=== PATIENT | male | born 1965 | race Caucasian/White ===

== ENCOUNTER 2023-07-03 06:23 | Day surgery (SDC) | payer BC, SELFPAY ==
--- NOTE | 2023-06-10 10:59 | CM ---
Patient is scheduled for an elective R THR on 07/03/23- he is a same day patient. Spoke with patient prior to surgery. Patient had a L THR at in 2020. Reintroduced role of Orthopedic Navigator. Patient reports that he lives with his , son and
daughter in a two story home. There is one step to enter and a flight of steps to the second floor. He currently functions independently. He has a rolling walker, cane, raised toilet seat and hip kit. He has had VN services through [facility]. PCP is
Willis Maldonado.
Discussed orthopedic program and post surgical plans. Reviewed that he will have VN services initially and will then start outpatient PT. Patient selects [facility] (face sheet faxed to [facility] to facilitate confirmation of benefits) for his home care
needs and will come to [facility] for outpatient PT.
Patient is in agreement with plan and states that his will be home with him.
Patient will complete online education.
Plan: Orthopedic Navigator will remain available to assist with the care of patient and will reassess discharge needs after surgery.
[2023-06-13 07:46] VITALS: BMI 29.1
[2023-06-13 08:43] LABS: Hematocrit 43.6 % (39.0-52.0); Hemoglobin 15.4 g/dL (13.0-18.0); Mean Corp Hgb Conc. 35.3 g/dL (33.0-37.0); Mean Corpuscular Hgb 31.4 pg (27.0-31.0); Mean Corpuscular Volume 88.8 fL (80.0-94.0); Mean Platelet Volume 10.2 fL (7.4-10.4); Platelet Count 211 10^3/uL (130-400); Red Blood Cell Count 4.91 10^6/uL (4.70-6.10); Red Cell Dist. Width 12.4 % (11.5-14.5); White Blood Cell Count 7.8 10^3/uL (4.8-10.8)
[2023-06-13 08:51] LABS: Glycohemoglobin (HgbA1c) 5.4 % (4.0-5.6)
[2023-06-13 09:06] LABS: ALT (SGPT) 33 U/L (0-50); AST (SGOT) 25 U/L (17-59); Albumin 4.2 g/dl (3.5-5.0); Alkaline Phosphatase 55 U/L (38-126); Blood Urea Nitrogen 17 mg/dl (9-20); Calcium 9.4 mg/dl (8.4-10.2); Carbon Dioxide 29 mmol/L (22-30); Chloride 100 mmol/L (98-107); Estimated Creatinine Clearance 81 ml/min; Glucose 88 mg/dl (70-99); Potassium 4.3 mmol/L (3.5-5.1); Sodium 138 mmol/L (135-145); Total Bilirubin 0.9 mg/dl (0.2-1.3); Total Protein 6.5 g/dl (6.3-8.2); eGFR > 60.00
--- NOTE | 2023-06-13 10:17 | HPS.HSE ---
Family Physician
-
Family Physician: Willis Maldonado
Chief Complaint
-
Advanced primary osteoarthritis of the right hip. Same-day surgery.
History of Present Illness
The patient is a 58-year-old male presenting today for advanced primary osteoarthritis of the right hip. The patient previously underwent a rather uncomplicated left total hip arthroplasty by Dr. Tung Chicas in June 2020. He returns
to [facility] today with complaints of significant right hip pain associated with his osteoarthritis. He states that his current right hip pain is greatly interfering with his activities of daily living and is overall affecting his quality
of life. He has tried and failed multiple conservative treatment measures in the past for his right hip pain. These conservative treatment measures include physical therapy, self-directed therapeutic exercises, activity modification, attempted
weight loss, medical management with Tylenol and NSAIDs, and the application of ice and/or heat. Recent x-ray findings of the right hip were consistent with advanced osteoarthritis. He was determined to be in need of a right total hip arthroplasty.
He denies any current complaints such as chest pain, shortness of breath, palpitations, nausea, vomiting, diarrhea, lightheadedness, dizziness, cough, sore throat or fever.
Medical History
Past Medical History
Past Medical History: Reports Other
Additional Past Medical History:
1. Osteoarthritis, status post left total hip arthroplasty, 06/2020, by Dr. Tung Chicas.
2. Sinus bradycardia, asymptomatic.
3. Borderline hypercholesterolemia.
4. Asthma, mild and intermittent.
5. Allergic rhinitis.
6. Diverticulosis.
7. Post-surgical urinary retention.
8. Insomnia.
9. Tinnitus.
10. COVID 19, 12/2021 and 04/2023, without residual side effects.
Past Surgical History: Reports Other
Additional Past Surgical History:
1. Left total hip arthroplasty, 06/2020, by Dr Tung Chicas.
2. Right long finger open reduction internal fixation.
3. Left little finger open reduction internal fixation.
4. Cholecystectomy.
5. Colonoscopy.
Social History
Tobacco: Non-smoker
Alcohol: Other (Social)
Personal:
Living: Other (He lives with his in a 2 story home. )
Family History
Family History: Not pertinent
Allergies / Home Medications
Allergy/Medication List:
Home medications:
1. Melatonin 2 mg p.o. at bedtime.
2. ProAir HFA inhaler 2 puffs inhaled every 4 hours as needed.
3. Co Q10 1 capsule p.o. daily.
4. Fish oil 2 capsules p.o. daily.
5. Super C 900 mg p.o. daily.
6. Multivitamin 1 tablet p.o. daily.
7. Ibuprofen 400-600 mg p.o. every 6 hours as needed.
8. Acetaminophen 1000 mg p.o. every 6 hours as needed.
9. Cetirizine HCl 10 mg p.o. daily.
�
ALLERGIES:� Cats and dogs. No known drug allergies.
Review of Systems
-
A 12 point ROS was completed and negative except as noted: Yes
Physical Exam
Vital Signs
Blood pressure 118/73. Heart rate 49. Respirations 18. Pulse ox 96% on room air.
Height 5 feet, 6.75 inches. Weight 83.5 kg. BMI 29.0.
Physical Exam
General: Well Developed, Well Nourished and No Apparent Distress
HEENT: NormoCephalic, Moist mucous membranes, Atraumatic and PERRLA
Respiratory: Clear
Cardiac: Bradycardia (asymptomatic)
GI: Soft, Non Tender and Non Distended
Musculoskeletal: Other (Left hip: 30 internal and 30 external without pain. Right hip: 0 internal with pain and 15 external. )
Skin: Warm and Dry
Neuro: AO x 3 and Nonfocal/grossly intact
Laboratory Results
-
06/13/23 07:34
06/13/23 07:34
Laboratory Results
Total Bilirubin 0.9 mg/dl (0.2-1.3) 06/13/23 07:34
AST 25 U/L (17-59) 06/13/23 07:34
ALT 33 U/L (0-50) 06/13/23 07:34
Alkaline Phosphatase 55 U/L (38-126) 06/13/23 07:34
Hemoglobin A1c 5.4.
MRSA nasal screen negative.
EKG 06/13/2023: Sinus bradycardia. The patient is asymptomatic and able to preform >4 METS.
Impression/Plan
-
CLEARANCES:
1. Primary medical: Dr. Willis Maldonado - cleared.
Primary medical phone number: [phone].
2. Dental waived.
IMPRESSION/PLAN:
1. Advanced primary osteoarthritis of the right hip in need of a right total hip arthroplasty with Dr. Tung Chicas on 07/03/2023. The benefits and risks of the procedure were explained to the patient. The patient understands these risks and
wishes to proceed.
2. DVT prophylaxis: Aspirin.
3. Pain management: The patient has stable comorbidities as referenced by his primary care doctor and is able to proceed as a Same-Day Surgical candidate on 07/03/2023. In preparation for his procedure, he has already been prescribed Oxycodone 5 mg,
1-2 tablets p.o. every 6 hours as needed for moderate to severe pain. He will also utilize Acetaminophen 1000 mg p.o. every 6 hours and Celebrex 200 mg p.o. daily for post-operative pain control. Decadron was offered but refused by patient.
4. Urinary retention post-surgery: The patient reports a history of urinary retention after prior procedures. He was prescribed Flomax to be started 3 nights prior to surgery. He will continue this prescription nightly post-surgery until finished.
Patient's phone number: [phone].
Patient's contact (Ila Hoover - Spouse): [phone].
[2023-06-13 16:50] VITALS: BMI 29.1
[2023-07-03] VITALS (19 sets, daily range): BP systolic 107–152; BP diastolic 54–88; PULSE 87; O2SAT 97; BMI 29.1
[2023-07-03] MEDS: CELEBREX 200 MG PO (07:21)
[2023-07-03] MEDS: TYLENOL 650 MG PO (07:21)
[2023-07-03] MEDS: BACTROBAN NASAL 1 GRAM NASAL (07:25)
[2023-07-03] MEDS: NORMOSOL-R 1000 IV ×2 (07:49→11:07)
[2023-07-03] MEDS: FLOMAX 0.400000000000000022 MG PO (11:06)
--- NOTE | 2023-07-03 11:08 | CM ---
Patient had planned R THR today. Met with patient at bedside to review discharge plans. Patient will be returning home today with services through [facility]. On Saturday, 07/08, patient will start outpatient PT at [facility]. Reviewed MD follow up
in two weeks and patient is aware of need to schedule appointment.
Patient has his rolling walker here with him.
PT and VN were kept updated as to progress and discharge plans.
[2023-07-03] MEDS: ANCEF 5 IV (12:40)
[2023-07-03] MEDS: TYLENOL 500 MG PO (12:45)
[2023-07-03] MEDS: ROXICODONE 5 MG PO (13:08)
== END 2023-07-03 15:15 | disposition home health service (06) ==
LOC: SDS 06:23
PROVIDERS: ATTENDING PHYSICIAN Orthopaedic Surgery; FAMILY PHYSICIAN Family Medicine; REFERRING PHYSICIAN Physician Assistant
DX: M16.11 Unilateral primary osteoarthritis, right hip (principal)
CPT/HCPCS: 27130; C1776; 36415; 73502; 80053; 83036; 85027; 87070; 93005; 97116; 97161

== ENCOUNTER 2023-07-10 12:59 | Outpatient (RCR) | payer BC, SELFPAY | END 2023-07-10 23:59 | disposition home or self-care (01) | LOC: RPT 12:59 | PROVIDERS: ATTENDING PHYSICIAN Orthopaedic Surgery; FAMILY PHYSICIAN Family Medicine | DX: Z47.1 Aftercare following joint replacement surgery (principal); Z96.641 Presence of right artificial hip joint; R26.89 Other abnormalities of gait and mobility; Z73.6 Limitation of activities due to disability | CPT/HCPCS: 97010; 97110; 97112; 97162 ==

== ENCOUNTER 2023-08-07 13:09 | Outpatient (RCR) | payer BC, SELFPAY | END 2023-08-07 14:05 | disposition home or self-care (01) | LOC: RPT 13:09 | PROVIDERS: ATTENDING PHYSICIAN Orthopaedic Surgery; FAMILY PHYSICIAN Family Medicine | DX: Z47.1 Aftercare following joint replacement surgery (principal); Z73.6 Limitation of activities due to disability; R26.89 Other abnormalities of gait and mobility; M25.551 Pain in right hip; Z96.641 Presence of right artificial hip joint | CPT/HCPCS: 97110; 97112 ==

== ENCOUNTER → 2024-12-21 15:21 | Outpatient (REF) | payer BC, SELFPAY | LOC: REG 15:21 | PROVIDERS: ATTENDING PHYSICIAN Family Medicine | DX: Z00.00 Encounter for general adult medical examination without abnormal findings (principal) | CPT/HCPCS: 36415 ==

== ENCOUNTER → 2024-12-22 13:12 | Outpatient (REF) | payer BC, SELFPAY ==
[2024-12-22 14:04] LABS: Hematocrit 45.2 % (39.0-52.0); Hemoglobin 16.1 g/dL (13.0-18.0); Mean Corp Hgb Conc. 35.6 g/dL (33.0-37.0); Mean Corpuscular Volume 87.1 fL (80.0-94.0); Nucleated Red Blood Cells % 0 % (-); Platelet Count 219 10^3/uL (130-400); Red Cell Dist. Width 12.0 % (11.5-14.5)
[2024-12-22 14:47] LABS: ALT (SGPT) 41 U/L (0-50); AST (SGOT) 28 U/L (17-59); Albumin 4.7 g/dl (3.5-5.0); Alkaline Phosphatase 49 U/L (38-126); Blood Urea Nitrogen 22 mg/dl (9-20); Calcium 9.5 mg/dl (8.4-10.2); Carbon Dioxide 27 mmol/L (22-30); Chloride 102 mmol/L (98-107); Glucose 94 mg/dl (70-99); HDL Cholesterol 41 mg/dl; LDL Cholesterol, Calculated 112 mg/dl; Potassium 4.8 mmol/L (3.5-5.1); Sodium 136 mmol/L (135-145); Total Protein 7.3 g/dl (6.3-8.2); Very Low Density Lipoprotein 32 mg/dl (0-30); eGFR > 60.00
[2024-12-22 15:25] LABS: PSA, Total - Screen 0.90 ng/ml (0.0-4.0)
== END ==
LOC: REG 13:12
PROVIDERS: ATTENDING PHYSICIAN Family Medicine
DX: Z00.00 Encounter for general adult medical examination without abnormal findings (principal)
CPT/HCPCS: 36415; 80053; 80061; 85025; G0103